=== PATIENT | male | born 1945 | race Caucasian/White ===

== ENCOUNTER → 2024-09-05 | Outpatient (CLI) | payer OTHER ==
[2024-09-05 11:13] LABS: C DIFFICILE DNA Formed (Negative)
== END | disposition home or self-care (01) ==
LOC: LAB 09:41 → LAB SHORT 09:41 → LAB FUT 09-02 14:40
PROVIDERS: Internal Medicine Gastroenterology
DX: K83.1 Obstruction of bile duct (principal); R17 Unspecified jaundice
CPT/HCPCS: 87015; 87045; 87046; 87205; 87899

== ENCOUNTER → 2024-12-01 | Outpatient (CLI) | payer OTHER ==
[2024-12-01 15:54] LABS: BASOPHILS ABSOLUTE AUTO 0.01 K/mm3 (0.00-0.23); BASOPHILS PERCENT AUTO 0 % (0-2); EOSINOPHILS ABSOLUTE AUTO 0.09 K/mm3 (0.00-0.68); EOSINOPHILS PERCENT AUTO 1 % (0-6); Hematocrit 39.1 % (37.0-53.0); Hemoglobin 13.6 g/dL (13.5-17.5); IMMATURE GRAN ABSOLUTE AUTO 0.03 K/mm3 (0.00-0.10); IMMATURE GRAN PERCENT AUTO 0 % (0-1); LYMPHOCYTES ABSOLUTE AUTO 0.22 K/mm3 (0.84-5.20); LYMPHOCYTES PERCENT AUTO 3 % (21-46); MONOCYTES ABSOLUTE AUTO 0.67 K/mm3 (0.16-1.47); MONOCYTES PERCENT AUTO 8 % (4-13); Mean Corpuscular HGB Conc 34.8 g/dL (31.5-36.5); Mean Corpuscular Volume 89 fL (80-100); NEUTROPHILS ABSOLUTE AUTO 7.56 K/mm3 (1.96-9.15); NEUTROPHILS PERCENT AUTO 88 % (41-73); RDW Coefficient Variation 13.6 % (11.7-14.2); RDW Standard Deviation 44.2 fL (35.1-46.3); Red Blood Cell Count 4.39 M/mm3 (4.30-5.90); White Blood Cell Count 8.58 K/mm3 (4.00-11.30)
[2024-12-01 15:55] LABS: Albumin, Blood 3.5 g/dL (3.4-5.0); Albumin/Globulin Ratio 0.9 (0.8-1.8); Bilirubin, Total 5.9 mg/dL (0.1-1.0); Bun/Creatinine Ratio 18.9 (12.0-20.0); Calcium, Blood 8.9 mg/dL (8.5-10.1); Creatinine, Blood 1.43 mg/dL (0.60-1.20); Globulin, Blood 3.9 g/dL (2.2-4.0); Total Protein, Blood 7.4 g/dL (6.4-8.2)
[2024-12-01 15:58] LABS: Mean Platelet Volume 10.4 fL (9.1-12.4); Platelet Count 131 K/mm3 (150-400)
== END | disposition home or self-care (01) ==
LOC: LAB 15:37 → LAB SHORT 15:37
PROVIDERS: Chiropractor
DX: R10.13 Epigastric pain (principal); R31.9 Hematuria, unspecified
CPT/HCPCS: 80053; 83605; 84484; 85025; 87086

== ENCOUNTER → 2024-12-01 | Outpatient (CLI) | payer OTHER | END | disposition home or self-care (01) | LOC: LAB 17:30 → LAB SHORT 17:30 | DX: K83.09 Other cholangitis (principal) | CPT/HCPCS: 87040; 87077; 87184; 87186 ==

== ENCOUNTER 2025-06-08 15:47 | Inpatient (IN) | payer OTHER ==
[~2025-06-08] VITALS: Ht 165.1 cm; Wt 61.8 kg
[2025-06-08] MEDS ORDERED: Lidocaine/Tetracaine/Epinephr 3 ML GEL SYRINGE TOP ONE (16:15)
[2025-06-08 17:33] LABS: BASOPHILS ABSOLUTE AUTO 0.01 K/mm3 (0.00-0.23); BASOPHILS PERCENT AUTO 0 % (0-2); EOSINOPHILS ABSOLUTE AUTO 0.00 K/mm3 (0.00-0.68); EOSINOPHILS PERCENT AUTO 0 % (0-6); Hematocrit 18.9 % (37.0-53.0); Hemoglobin 6.1 g/dL (13.5-17.5); IMMATURE GRAN ABSOLUTE AUTO 0.08 K/mm3 (0.00-0.10); IMMATURE GRAN PERCENT AUTO 1 % (0-1); LYMPHOCYTES ABSOLUTE AUTO 0.19 K/mm3 (0.84-5.20); LYMPHOCYTES PERCENT AUTO 2 % (21-46); MONOCYTES ABSOLUTE AUTO 0.29 K/mm3 (0.16-1.47); MONOCYTES PERCENT AUTO 3 % (4-13); Mean Corpuscular HGB Conc 32.3 g/dL (31.5-36.5); Mean Corpuscular Volume 94 fL (80-100); NEUTROPHILS ABSOLUTE AUTO 10.71 K/mm3 (1.96-9.15); NEUTROPHILS PERCENT AUTO 95 % (41-73); NRBC ABSOLUTE 0.00 K/mm3 (0.00-0.02); NRBC Auto 0.0 /100 WBC (0.0-0.2); Platelet Count 162 K/mm3 (150-400); RDW Coefficient Variation 17.7 % (11.7-14.2); RDW Standard Deviation 58.7 fL (35.1-46.3)
[2025-06-08 17:47] LABS: Prothrombin Time Results 13.9 Sec (9.7-11.5)
[2025-06-08] MEDS ORDERED: Pantoprazole Sodium 40 MG Injection IV ONE ×2 (18:00→20:25)
[2025-06-08 18:01] LABS: Alanine Aminotransfer (ALT/SGP 74 U/L (12-78); Albumin, Blood 1.7 g/dL (3.4-5.0); Albumin/Globulin Ratio 0.4 (0.8-1.8); Anion Gap 10 mmol/L (3-11); Aspartate Aminotrans (AST/SGOT 53 U/L (12-37); Bilirubin, Total 10.9 mg/dL (0.1-1.0); Blood Urea Nitrogen 41 mg/dL (8-24); CO2, Blood 29 mmol/L (21-32); Calcium, Blood 8.3 mg/dL (8.5-10.1); Chloride, Blood 96 mmol/L (98-108); Creatinine, Blood 0.96 mg/dL (0.60-1.20); Globulin, Blood 3.8 g/dL (2.2-4.0); Glucose, Blood 181 mg/dL (70-99); Potassium, Blood 4.5 mmol/L (3.5-5.5); Sodium, Blood 130 mmol/L (136-145); Total Protein, Blood 5.5 g/dL (6.4-8.2)
[2025-06-08] MEDS ORDERED: ALLOPURINOL100 M1 PO (20:33)
[2025-06-08] MEDS ORDERED: OLMESARTAN MEDO20 MG PO (20:33)
[2025-06-08] MEDS ORDERED: AMLODIPINE BESY10 MG PO (20:33)
[2025-06-08] MEDS ORDERED: NS 1,000 ML IV ONE (21:30)
[2025-06-08] MEDS ORDERED: CefTRIAXone Sodium 1,000 MG in NS 100 ML IV ONE (22:00)
[2025-06-09 00:25] LABS: Hematocrit 22.6 % (37.0-53.0); Hemoglobin 7.5 g/dL (13.5-17.5)
[2025-06-09] MEDS ORDERED: Ondansetron HCl 2 MG / ML 2ML Vial IV PRN (01:15)
[2025-06-09] MEDS ORDERED: FLU VACC TS2025(65UP)/MF59C/PF 45 MCG/0.5 ML SYRINGE IM SCH (01:15)
[2025-06-09] MEDS ORDERED: Piperacillin/Tazobactam Sod 4.5 GM in NS 100 ML IV SCH (01:37)
[2025-06-09] MEDS ORDERED: NS 500 ML IV SCH (02:00)
[2025-06-09] MEDS ORDERED: Pantoprazole Sodium 40 MG Injection IV SCH (06:00)
[2025-06-09 06:10] LABS: BASOPHILS ABSOLUTE AUTO 0.02 K/mm3 (0.00-0.23); BASOPHILS PERCENT AUTO 0 % (0-2); EOSINOPHILS ABSOLUTE AUTO 0.01 K/mm3 (0.00-0.68); EOSINOPHILS PERCENT AUTO 0 % (0-6); Hematocrit 22.0 % (37.0-53.0); Hemoglobin 7.4 g/dL (13.5-17.5); IMMATURE GRAN ABSOLUTE AUTO 0.10 K/mm3 (0.00-0.10); IMMATURE GRAN PERCENT AUTO 1 % (0-1); LYMPHOCYTES ABSOLUTE AUTO 0.26 K/mm3 (0.84-5.20); LYMPHOCYTES PERCENT AUTO 2 % (21-46); MONOCYTES ABSOLUTE AUTO 0.87 K/mm3 (0.16-1.47); MONOCYTES PERCENT AUTO 7 % (4-13); Mean Corpuscular HGB Conc 33.6 g/dL (31.5-36.5); Mean Corpuscular Volume 88 fL (80-100); NEUTROPHILS ABSOLUTE AUTO 12.14 K/mm3 (1.96-9.15); NEUTROPHILS PERCENT AUTO 91 % (41-73); NRBC ABSOLUTE 0.00 K/mm3 (0.00-0.02); NRBC Auto 0.0 /100 WBC (0.0-0.2); Platelet Count 157 K/mm3 (150-400); RDW Coefficient Variation 20.9 % (11.7-14.2); RDW Standard Deviation 66.9 fL (35.1-46.3)
[2025-06-09 06:46] LABS: Magnesium, Blood 2.4 mg/dL (1.6-2.4); Total Iron Binding Capacity 174.0 ug/dL (250-450)
[2025-06-09 07:01] LABS: Alanine Aminotransfer (ALT/SGP 62.0 U/L (12-78); Albumin, Blood 1.5 g/dL (3.4-5.0); Albumin/Globulin Ratio 0.4 (0.8-1.8); Anion Gap 6.0 mmol/L (3-11); Aspartate Aminotrans (AST/SGOT 53.0 U/L (12-37); Bilirubin, Total 11.2 mg/dL (0.1-1.0); Blood Urea Nitrogen 41.0 mg/dL (8-24); CO2, Blood 29.0 mmol/L (21-32); Calcium, Blood 8.0 mg/dL (8.5-10.1); Chloride, Blood 99.0 mmol/L (98-108); Creatinine, Blood 1.01 mg/dL (0.60-1.20); Ferritin, Serum 3381.0 ng/mL (26-388); Globulin, Blood 3.6 g/dL (2.2-4.0); Glucose, Blood 124.0 mg/dL (70-99); Potassium, Blood 4.7 mmol/L (3.5-5.5); Sodium, Blood 129.0 mmol/L (136-145); Total Protein, Blood 5.1 g/dL (6.4-8.2)
[2025-06-09 08:05] VITALS: BP 134/84
[2025-06-09] MEDS ORDERED: TIZA4 PO (08:27)
[2025-06-09] MEDS ORDERED: Lactobacil 2-S.Thermo-Bifido 1 1 Cap PO SCH (09:00)
[2025-06-09] MEDS ORDERED: MULVITA PO (10:09)
[2025-06-09] MEDS ORDERED: QUERCETIN500 MG PO (10:10)
[2025-06-09] MEDS ORDERED: RESVERATROL100 MG PO (10:11)
[2025-06-09] MEDS ORDERED: [UNRECOGNIZED DRUG - CODE] PO (10:11)
[2025-06-09] MEDS ORDERED: PROBIOTIC ACID1 EAC8 PO (10:11)
[2025-06-09] MEDS ORDERED: FISH OIL 1,0001 EA10 PO (10:12)
[2025-06-09] MEDS ORDERED: TUMERIC/GINGER PO (10:13)
[2025-06-09] MEDS ORDERED: [UNRECOGNIZED DRUG - OTHER] PO (10:14)
[2025-06-09] MEDS ORDERED: CALCIUM PO (10:15)
[2025-06-09] MEDS ORDERED: ESTER C PO (10:15)
[2025-06-09] MEDS ORDERED: NS 250 ML IV PRN (10:30)
[2025-06-09 11:05] VITALS: BP 117/77
[2025-06-09 12:08] VITALS: BP 120/87
[2025-06-09 15:06] VITALS: BP 113/79
[2025-06-09] MEDS ORDERED: FentaNYL Citrate 50 MCG/ML 2 ML Injection IV PRN (17:00)
--- NOTE | 2025-06-09 18:14 | NUR ---
SHIFT SUMMARY PT AOX4, COOPERATIVE, ABLE TO MAKE NEEDS KNOWN. PT IS SBA. MEDIPORT RIGHT UPPER CHEST, RUNNING TKO NS. ON REGULAR DIET NOW. PALLIATIVE CONSULT PLAED, THEY WILL TALK TO PT AND FAMILY TOMORROW. ON ROOM AIR. BED IN LOWEST POSITION, CALL LIGHT WITHIN REACH
[2025-06-09 19:20] VITALS: BP 115/75
[2025-06-10] VITALS (11 sets, daily range): BP systolic 95–147; BP diastolic 67–96
--- NOTE | 2025-06-10 04:53 | NUR ---
SHIFT SUMMARY NOC PT A/O X 4, BILATERAL HEARING AIDES. VSS. NO ACUTE CHANGES TO REPORT. MEDIPORT IN RUCW INFUSING IV ABX PER EMAR. PT CHRONIC ABD PAIN BEING MANAGED PER EMAR. ON TELE SINUS RHYTHM IN . PT HAS PALLIATIVE CARE CONSULT SCHEDULED FOR TODAY TO DISCUSS GOALS OF CARE GOING FORWARD. PT HOME CPAP SET UP BY RT. PT CURRENTLY RESTING WITH BED IN LOWEST POSITION, AND CALL LIGHT WITHIN REACH.
[2025-06-10 06:30] LABS: BASOPHILS ABSOLUTE AUTO 0.04 K/mm3 (0.00-0.23); BASOPHILS PERCENT AUTO 0 % (0-2); EOSINOPHILS ABSOLUTE AUTO 0.02 K/mm3 (0.00-0.68); EOSINOPHILS PERCENT AUTO 0 % (0-6); Hematocrit 21.0 % (37.0-53.0); Hemoglobin 7.1 g/dL (13.5-17.5); IMMATURE GRAN ABSOLUTE AUTO 0.65 K/mm3 (0.00-0.10); IMMATURE GRAN PERCENT AUTO 4 % (0-1); LYMPHOCYTES ABSOLUTE AUTO 0.28 K/mm3 (0.84-5.20); LYMPHOCYTES PERCENT AUTO 2 % (21-46); MONOCYTES ABSOLUTE AUTO 1.21 K/mm3 (0.16-1.47); MONOCYTES PERCENT AUTO 7 % (4-13); Mean Corpuscular HGB Conc 33.8 g/dL (31.5-36.5); Mean Corpuscular Volume 87 fL (80-100); NEUTROPHILS ABSOLUTE AUTO 16.06 K/mm3 (1.96-9.15); NEUTROPHILS PERCENT AUTO 88 % (41-73); NRBC ABSOLUTE 0.00 K/mm3 (0.00-0.02); NRBC Auto 0.0 /100 WBC (0.0-0.2); Platelet Count 126 K/mm3 (150-400); RDW Coefficient Variation 20.4 % (11.7-14.2); RDW Standard Deviation 65.9 fL (35.1-46.3)
[2025-06-10 06:57] LABS: Alanine Aminotransfer (ALT/SGP 63.0 U/L (12-78); Albumin, Blood 1.5 g/dL (3.4-5.0); Albumin/Globulin Ratio 0.4 (0.8-1.8); Anion Gap 8.0 mmol/L (3-11); Aspartate Aminotrans (AST/SGOT 70.0 U/L (12-37); Bilirubin, Total 13.2 mg/dL (0.1-1.0); Blood Urea Nitrogen 47.0 mg/dL (8-24); CO2, Blood 29.0 mmol/L (21-32); Calcium, Blood 7.8 mg/dL (8.5-10.1); Chloride, Blood 97.0 mmol/L (98-108); Creatinine, Blood 1.27 mg/dL (0.60-1.20); Globulin, Blood 3.6 g/dL (2.2-4.0); Glucose, Blood 133.0 mg/dL (70-99); Potassium, Blood 4.9 mmol/L (3.5-5.5); Sodium, Blood 129.0 mmol/L (136-145); Total Protein, Blood 5.1 g/dL (6.4-8.2)
[2025-06-10] MEDS ORDERED: NS 500 ML IV ONE (09:55)
[2025-06-10 11:55] LABS: Hematocrit 20.5 % (37.0-53.0); Hemoglobin 6.7 g/dL (13.5-17.5)
[2025-06-10] MEDS ORDERED: NS 500 ML IV SCH (13:55)
[2025-06-10] MEDS ORDERED: Piperacillin/Tazobactam Sod 4.5 GM in NS 100 ML IV SCH (14:00)
--- NOTE | 2025-06-10 17:30 | NUR ---
MET WITH PATIENT THIS MORNING. HIS S/O LAILA AT BEDSIDE. WE DISCUSSED HIS CURRENT TREATMENTS. HE WAS IN [place] RECIEVING TREATMENT FOR HIS CANCER AND IS AWAITING MEDICATION TO BE DELIVERED. HE RELAYED THAT HE IS CONCERNED ABOUT GETTING IN AND OUT OF THE TUB, HE EXPRESSED THAT HE WOULD NEED A WALKER WITH A SEAT, AND A URINAL. HE IS STILL AWAITING SOME RESULTS FROM HIS CULTURES TO MAKE SURE HIS ABX ARE COVERING HIS INFECTION. WE DISCUSSED HOSPICE AN OPTION. WE DISCUSSED PROS AND CONS AND THE PROCESSES TO FOLLOW IF HE WERE TO DECIDE ON THAT ROUTE. PC WILL CONTINUE TO PROVIDE SUPPORT AND EDUCATION NEEDED
--- NOTE | 2025-06-10 18:08 | NUR ---
End of shift summary: Patient is alert and oriented x4; pleasant and cooperative with care. Patient with 1unit PRBC's infused and completed per order. Patient with c/o abdominal pain/cramping d/t gas and encouraged to ambulate by spouse. Patient denied SOB, CP, N/V/D this shift. Patient continues with jaundice, dark yellow/orange urine. All medications administered per EMAR. Patient utilizing call light appropriately; call light within reach and bed in lowest position. Will continue to monitor until next shift nurse arrives and report is given.
[2025-06-11] VITALS (7 sets, daily range): BP systolic 93–118; BP diastolic 68–78
[2025-06-11 05:19] LABS: BASOPHILS ABSOLUTE AUTO 0.02 K/mm3 (0.00-0.23); BASOPHILS PERCENT AUTO 0 % (0-2); EOSINOPHILS ABSOLUTE AUTO 0.02 K/mm3 (0.00-0.68); EOSINOPHILS PERCENT AUTO 0 % (0-6); Hematocrit 27.0 % (37.0-53.0); Hemoglobin 9.3 g/dL (13.5-17.5); IMMATURE GRAN ABSOLUTE AUTO 0.36 K/mm3 (0.00-0.10); IMMATURE GRAN PERCENT AUTO 2 % (0-1); LYMPHOCYTES ABSOLUTE AUTO 0.47 K/mm3 (0.84-5.20); LYMPHOCYTES PERCENT AUTO 3 % (21-46); MONOCYTES ABSOLUTE AUTO 1.21 K/mm3 (0.16-1.47); MONOCYTES PERCENT AUTO 8 % (4-13); Mean Corpuscular HGB Conc 34.4 g/dL (31.5-36.5); Mean Corpuscular Volume 85 fL (80-100); NEUTROPHILS ABSOLUTE AUTO 13.21 K/mm3 (1.96-9.15); NEUTROPHILS PERCENT AUTO 86 % (41-73); NRBC ABSOLUTE 0.00 K/mm3 (0.00-0.02); NRBC Auto 0.0 /100 WBC (0.0-0.2); Platelet Count 145 K/mm3 (150-400); RDW Coefficient Variation 19.6 % (11.7-14.2); RDW Standard Deviation 59.7 fL (35.1-46.3)
--- NOTE | 2025-06-11 05:32 | NUR ---
SHIFT SUMMARY NOC PT A/O X 4. PLEASANT AND COOPERATIVE WITH CARE. BP STABLE. HGB 9.3 THIS AM AFTER 1 UNIT PRBC YESTERDAY. ON TELE SINUS RHYTHM IN 'S. MEDIPORT IN RUW INFUSING IV ABX PER EMAR. ABD PAIN BEING MANAGED PER EMAR, AND PT HAS C/O OF WORSENING PO INTAKE. PT HAVING C/O OF LLE PAIN AND IS CONCERNED ABOUT THE 2+ EDEMA BLE. PT CURRENTLY RESTING WITH BED IN LOWEST POSITION, AND CALL LIGHT WITHIN REACH.
[2025-06-11 06:01] LABS: Alanine Aminotransfer (ALT/SGP 63.0 U/L (12-78); Albumin, Blood 1.4 g/dL (3.4-5.0); Albumin/Globulin Ratio 0.4 (0.8-1.8); Anion Gap 11.0 mmol/L (3-11); Aspartate Aminotrans (AST/SGOT 68.0 U/L (12-37); Bilirubin, Total 15.7 mg/dL (0.1-1.0); Blood Urea Nitrogen 49.0 mg/dL (8-24); CO2, Blood 27.0 mmol/L (21-32); Calcium, Blood 7.8 mg/dL (8.5-10.1); Chloride, Blood 98.0 mmol/L (98-108); Creatinine, Blood 1.26 mg/dL (0.60-1.20); Globulin, Blood 3.7 g/dL (2.2-4.0); Glucose, Blood 119.0 mg/dL (70-99); Potassium, Blood 4.5 mmol/L (3.5-5.5); Sodium, Blood 131.0 mmol/L (136-145); Total Protein, Blood 5.1 g/dL (6.4-8.2)
--- NOTE | 2025-06-11 12:30 | NUR ---
NOTE SPOKE WITH DR ROCHA, INFORMED OF BLOOD PRESSURE READINGS THIS MORNING OF 98/72 [address] 96[address] ORDER FOR 500 CC BOLUS OF FLUID
[2025-06-11] MEDS ORDERED: NS 500 ML IV ONE (12:35)
--- NOTE | 2025-06-11 17:13 | NUR ---
END OF SHIFT PATIENT RESTING IN BED MOST OF TODAY. SOME APPETITE TODAY. SBA WITH FWW TO BATHROOM. 500 CC BOLUS GIVEN PER ORDER DUE TO SBP <100. RECOVERED WELL. PATIENT HAD PAIN MEDICATION THIS MORNING, MILD PAIN THIS AFTERNOON, DECLINED NEED FOR PAIN MEDICATION. TELE PATCHES REPLACED, SR AT 85 BPM.
[2025-06-12 03:29] VITALS: BP 102/72
--- NOTE | 2025-06-12 04:44 | NUR ---
SHIFT SUMMARY NOC PT A/O X 4, BILATERAL HEARING AIDES. VSS. PT JAUNDICE SEEMS TO BE GETTING WORSE. PT IN MORE PAIN AND GIVEN OXYCODONE/FENTANYL COMBINATION X 1 WHICH HELPED. PT HAS PALLIATIVE CARE/HOSPICE CONSULT SCHEDULED FOR TODAY AND PT SPOUSE HAS APPOINMENT AND IS AFRAID THAT THEY WILL NOT BE ABLE TO ATTEND TO DISCUSS OPTIONS GOING FORWARD. SHE WOULD LIKE TO BE ABLE TO CALL PALLIATIVE CARE RN OR COME IN TO OFFICE TO DISCUSS DETAILS OF CONSULT IF POSSIBLE. PT HAS MEDIPORT IN [facility] ACCESSED AND INFUSING IV ABX PER EMAR. PT CURRENTLY RESTING WITH BED IN LOWEST POSITION, AND CALL LIGHT WITHIN REACH.
[2025-06-12 06:09] LABS: Hematocrit 26.0 % (37.0-53.0); Hemoglobin 9.0 g/dL (13.5-17.5); Mean Corpuscular HGB Conc 34.6 g/dL (31.5-36.5); Mean Corpuscular Volume 84 fL (80-100); NRBC ABSOLUTE 0.00 K/mm3 (0.00-0.02); NRBC Auto 0.0 /100 WBC (0.0-0.2); Platelet Count 146 K/mm3 (150-400); RDW Coefficient Variation 19.3 % (11.7-14.2); RDW Standard Deviation 58.1 fL (35.1-46.3)
[2025-06-12 06:25] LABS: BAND PERCENT MAN 3 % (0-8); BASOPHILS ABSOLUTE MAN 0.00 K/mm3 (0.00-0.23); BASOPHILS PERCENT MAN 0 % (0-2); EOSINOPHILS ABSOLUTE MAN 0.00 K/mm3 (0.00-0.68); EOSINOPHILS PERCENT MAN 0 % (0-6); LYMPHOCYTES ABSOLUTE MAN 0.45 K/mm3 (0.84-5.20); LYMPHOCYTES PERCENT MAN 4 % (21-46); MONOCYTES ABSOLUTE MAN 0.22 K/mm3 (0.16-1.47); MONOCYTES PERCENT MAN 2 % (4-13); MYELOCYTE ABSOLUTE MAN 0.11 K/mm3 (0.00-0.00); MYELOCYTE PERCENT MAN 1 % (0-0); NEUTROPHILS ABSOLUTE MAN 10.68 K/mm3 (1.96-9.15); SEG NEUTROPHILS PERCENT MAN 90 % (41-73)
[2025-06-12 06:29] LABS: Alanine Aminotransfer (ALT/SGP 60.0 U/L (12-78); Albumin, Blood 1.3 g/dL (3.4-5.0); Albumin/Globulin Ratio 0.3 (0.8-1.8); Anion Gap 9.0 mmol/L (3-11); Aspartate Aminotrans (AST/SGOT 62.0 U/L (12-37); Bilirubin, Total 15.9 mg/dL (0.1-1.0); Blood Urea Nitrogen 52.0 mg/dL (8-24); CO2, Blood 27.0 mmol/L (21-32); Calcium, Blood 7.7 mg/dL (8.5-10.1); Chloride, Blood 100.0 mmol/L (98-108); Creatinine, Blood 1.37 mg/dL (0.60-1.20); Globulin, Blood 3.8 g/dL (2.2-4.0); Glucose, Blood 114.0 mg/dL (70-99); Potassium, Blood 4.6 mmol/L (3.5-5.5); Sodium, Blood 131.0 mmol/L (136-145); Total Protein, Blood 5.1 g/dL (6.4-8.2)
[2025-06-12 07:09] VITALS: BP 112/73
[2025-06-12] MEDS ORDERED: Enoxaparin 40 MG/0.4 ML SYR SC SCH (09:00)
--- NOTE | 2025-06-12 09:00 | NUR ---
pt laying in bed with eyes closed, a/ox4, pleawant and cooperative with care, follows commands well, reports pain at 4/10, medicated with fentanyl with good relief, lungs are clear dim in bases, resp even and unlabored, no cough noted, on r/a during day, cpap at hs, hrr, tele in place runing sr per monitor, see strip, 2+ edema noted to b/l le, cap refill<3 sec, vs stable, afebrile, piv to lac and mediport is accessed with ns tko infusing, voids without diff, skin c/w/d, maew, general weakness, zhao, call light in reach.
[2025-06-12 11:00] VITALS: BP 95/66
--- NOTE | 2025-06-12 15:32 | NUR ---
Case Conference: Met with pt and his s/o Kristyn. They are ready to pursue hospice, and chose [facility]. CM following up.
[2025-06-12] MEDS ORDERED: Piperacillin/Tazobactam Sod 4.5 GM in NS 100 ML IV SCH (16:00)
--- NOTE | 2025-06-12 18:24 | NUR ---
pt had an uneventful day, ambulates to the bathroom with walker and one person assist, needs lines mgd, slept a lot of the day, was in and had a long conversation with pallative care, plan is for hospice, no further changes this shift, call light in reach.
[2025-06-12 19:13] VITALS: BP 104/72
--- NOTE | 2025-06-12 20:28 | NUR ---
RECEIVED RESULTS FROM LAB OF POSITIVE BLOOD CULTURE OF GRAM + COCCXI WITH CLUSTERS. HOSPITALIST CALLED AND INFORMED. NO INTERVENTIONS NEEDED AT THIS TIME DUE TO PT GOING HOME ON HOSPICE TOMORROW PER HOSPITALIST.
--- NOTE | 2025-06-12 23:38 | NUR ---
RECEIVED TELEPHONE ORDERS TO D/C TELEMETRY DUE TO PT GOING HOME ON HOSPICE.
--- NOTE | 2025-06-13 01:04 | NUR ---
POSITIVE BLOOD CULTURES Received call from Laboratory RE critical lab result while covering ARABELLA Vizcaino (Primary Nurse) for a break. Was in the patient's room when notification was received. It appears this was a different organism isolated than earlier which was gram positive cocci in clusters. Current positive blood cx has gram negative bacilli. Notified Dr. Pramod Maher. Patient already receiving Zosyn, a broad spectrum abx. Charge Deepika Carmona RN also informed. No new orders. No change in patient's status. Plans to d/c on hospice tomorrow.
[2025-06-13 01:17] VITALS: BP 100/72
[2025-06-13 03:46] VITALS: BP 102/69
--- NOTE | 2025-06-13 04:21 | NUR ---
SHIFT SUMMARY A&OX4. ABLE TO MAKE NEEDS KNOWN. VERY JAUNDICE. EDEMA PRESENT. ABD DISTENTION PRESENT. RECEIVED BLOOD CX RESULTS SHOWING GRAM + COCCXI WITH CLUSTERS. HOSPITALIST CALLED AND DUE TO PLAN FOR PT TO GO HOME ON HOSPICE NO NEW ORDERS RECEIVED. DID RECEIVE ORDERS TO D/C TELE AND HOSPITALIST STATED TO CONTINUE ABX THEY ARE CURRENTLY ORDERED AT THIS TIME. PT HAD AN EPISODE WHEN HE GOT UP TO USE THE RESTROOM OF OVERALL "NOT FEELING RIGHT" AND NAUSEA. ZOFRAN GIVEN PER EMAR AND PAIN IN ABD ELEVATED WELL ONCE PT WAS BACK IN BED. PT MEDICATED PER EMAR FOR PAIN WELL. HE HAD ANOTHER EPISODE OF "NOT FEELING RIGHT" AND FEELING CONFUSED AFTER RESTING IN BED FOR AWHILE AND CALLED APPROPRIATELY. EDUCATED ON HOW THIS CAN HAPPEN WITH LIVER INVOLVMENT. THE PTS ROOM WAS ALSO VERY HOT, SO TEMP TURNED DOWN AND A COOL CLOTH APPLIED TO FOREHEAD. THE PT STATED HE FELT BETTER AND WAS ABLE TO GO BACK TO SLEEP. CURRENTLY PT IS RESTING IN HIS BED AT LOWEST POSITION WITH CALL LIGHT WITHIN REACH.
[2025-06-13 05:31] LABS: BASOPHILS ABSOLUTE AUTO 0.03 K/mm3 (0.00-0.23); BASOPHILS PERCENT AUTO 0 % (0-2); EOSINOPHILS ABSOLUTE AUTO 0.01 K/mm3 (0.00-0.68); EOSINOPHILS PERCENT AUTO 0 % (0-6); Hematocrit 27.1 % (37.0-53.0); Hemoglobin 9.2 g/dL (13.5-17.5); IMMATURE GRAN ABSOLUTE AUTO 0.20 K/mm3 (0.00-0.10); IMMATURE GRAN PERCENT AUTO 1 % (0-1); LYMPHOCYTES ABSOLUTE AUTO 0.51 K/mm3 (0.84-5.20); LYMPHOCYTES PERCENT AUTO 3 % (21-46); MONOCYTES ABSOLUTE AUTO 0.68 K/mm3 (0.16-1.47); MONOCYTES PERCENT AUTO 4 % (4-13); Mean Corpuscular HGB Conc 33.9 g/dL (31.5-36.5); Mean Corpuscular Volume 85 fL (80-100); NEUTROPHILS ABSOLUTE AUTO 14.59 K/mm3 (1.96-9.15); NEUTROPHILS PERCENT AUTO 91 % (41-73); NRBC ABSOLUTE 0.00 K/mm3 (0.00-0.02); NRBC Auto 0.0 /100 WBC (0.0-0.2); Platelet Count 152 K/mm3 (150-400); RDW Coefficient Variation 19.2 % (11.7-14.2); RDW Standard Deviation 59.6 fL (35.1-46.3)
[2025-06-13 05:52] LABS: Alanine Aminotransfer (ALT/SGP 52.0 U/L (12-78); Albumin, Blood 1.3 g/dL (3.4-5.0); Albumin/Globulin Ratio 0.3 (0.8-1.8); Anion Gap 12.0 mmol/L (3-11); Aspartate Aminotrans (AST/SGOT 60.0 U/L (12-37); Bilirubin, Total 17.3 mg/dL (0.1-1.0); Blood Urea Nitrogen 54.0 mg/dL (8-24); CO2, Blood 25.0 mmol/L (21-32); Calcium, Blood 7.9 mg/dL (8.5-10.1); Chloride, Blood 100.0 mmol/L (98-108); Creatinine, Blood 1.63 mg/dL (0.60-1.20); Globulin, Blood 4.1 g/dL (2.2-4.0); Glucose, Blood 106.0 mg/dL (70-99); Potassium, Blood 4.6 mmol/L (3.5-5.5); Sodium, Blood 132.0 mmol/L (136-145); Total Protein, Blood 5.4 g/dL (6.4-8.2)
[2025-06-13 07:05] VITALS: BP 93/70
[2025-06-13] MEDS ORDERED: Furosemide 10 MG / ML 2ML Vial IV SCH (09:00)
[2025-06-13] MEDS ORDERED: LORazepam 2 MG/ML 1ML Injection IV PRN (14:25)
[2025-06-13] MEDS ORDERED: Morphine Sulfate 20 MG/1ML 1 ML Oral Syringe SL PRN (14:25)
--- NOTE | 2025-06-13 15:27 | NUR ---
PT'S CARE HAS BEEN TRANSFERRED TO ARABELLA JUAN. REPORT GIVEN AND PT'S FAMILY MADE AWARE.
--- NOTE | 2025-06-13 17:44 | NUR ---
SHIFT SUMMARY ASSUMED CARE OF PT AT APPROX 1630. PT AOX4, COOPERATIVE, ABLE TO MAKE NEEDS KNOWN. PT TOLERATING MEDICATIONS. ON ROOM AIR. CON COMFORT CARE. RIGHT CHEST PORT ACCESSED, RUNNING TKO. LACIV DC'D BY WASTE MACHINE OFFBEARER WITHOUT EVENT. PT TO BE DC'D 06/14/25 AT APPROX 1115 HOME HOSPICE. BED IN LOWEST POSITION, CALL LIGHT WITHIN REACH.
--- NOTE | 2025-06-14 05:12 | NUR ---
SHIFT SUMMARY A&OX4. ABLE TO MAKE NEEDS KNOWN. ON COMFORT CARE. PAIN OCCASIONALLY THROUGHOUT SHIFT AND PT MEDICATED PER EMAR. PT WAS ABLE TO REST MOST OF THE NIGHT COMFORTABLY. PT CURRENTLY RESTING IN BED AT LOWEST POSITION WITH CALL LIGHT WITHIN REACH.
[2025-06-14] MEDS ORDERED: LORA.5 PO (10:01)
[2025-06-14] MEDS ORDERED: OXAYDO5 M1 PO (10:03)
[2025-06-14] MEDS ORDERED: MORP20L SL (10:03)
--- NOTE | 2025-06-14 15:26 | NUR ---
Patient discharged home on hospice today. All patient belongings bagged and in patient possession prior to leaving the hospital. Patient mediport deaccessed without difficulty and patient tolerated well. Education and instruction discussed with patient prior to leaving. Patient picked up and transported via wheelchair by transport agency.
== END 2025-06-14 14:33 | disposition hospice, home (50) | DRG 871 ==
LOC: ER 15:47 → ERHOLD 06-09 01:12 → MEDS 06-09 01:12
PROVIDERS: Emergency Medicine; Family Medicine; Student in an Organized Health Care Education/Training Program; ADMIT Student in an Organized Health Care Education/Training Program
PROC: 30233N1 Transfusion of Nonautologous Red Blood Cells into Peripheral Vein, Percutaneous Approach (ICD-10-PCS; 2025-06-08)
PROC: 3E03329 Introduction of Other Anti-infective into Peripheral Vein, Percutaneous Approach (ICD-10-PCS; principal; 2025-06-10)
DX: A41.9 Sepsis, unspecified organism (principal); K83.1 Obstruction of bile duct; C25.9 Malignant neoplasm of pancreas, unspecified; E87.1 Hypo-osmolality and hyponatremia; C78.7 Secondary malignant neoplasm of liver and intrahepatic bile duct; K83.09 Other cholangitis; Z51.5 Encounter for palliative care; Z66 Do not resuscitate; I12.9 Hypertensive chronic kidney disease with stage 1 through stage 4 chronic kidney disease, or unspecified chronic kidney disease; N18.9 Chronic kidney disease, unspecified; M10.9 Gout, unspecified; D63.1 Anemia in chronic kidney disease; E87.8 Other disorders of electrolyte and fluid balance, not elsewhere classified; Z79.899 Other long term (current) drug therapy; Z88.8 Allergy status to other drugs, medicaments and biological substances
CPT/HCPCS: 36415; 36430; 74177; 80053; 82140; 82728; 83540; 83550; 83605; 83690; 83735; 83880; 84484; 85014; 85018; 85025; 85610; 86301; 86850; 86900; 86901; 86923; 87040; 87077; 87186; 93005; 93010; 93308; 93321; 94762; 96365; 96375; 99285-25; A9270; J0696; J1642; J1938; J2405; J2470; J2543; J3010; J7030; J7040; J7050; P9016; Q9967